=== PATIENT | male | born 1970 | race Caucasian/White ===

== ENCOUNTER 2017-01-30 22:38 | Emergency (ER) | payer SELFPAY ==
[~2017-01-30] VITALS: Ht 172.7 cm; Wt 114.3 kg
[~2017-01-30 22:38] MED LIST: AZIT500I PO
[2017-01-30 22:49] VITALS: BP 157/101; PULSE 62; RESP 20; TEMP 98; O2SAT 97
== END 2017-01-30 23:45 | disposition left against medical advice (07) ==
LOC: PHED 22:38
DX: R10.9 Unspecified abdominal pain (principal)
CPT/HCPCS: 99281